=== PATIENT | female | born 1980 | race Caucasian/White ===

== ENCOUNTER 2017-05-27 19:43 | Emergency (ER) | payer MEDICAID ==
[~2017-05-27] VITALS: Ht 157.5 cm; Wt 73.6 kg
[2017-05-27 19:48] VITALS: BP 116/82
--- NOTE | 2017-05-27 20:20 | NUR ---
PATIENT IS A 36 Y/O FEMALE WHO PRESENTS TO THE ED C/O VAGINAL BLEEDING. PT STATES, "I HAVE VAGINAL BLEEDING SINCE MARCH." PT REPORTS 9/10 ACHING VAGINAL PAIN THAT DOES NOT RADIATE. PT DENIES CP, SOB, N/V/D. PT AAOX4, RR EVEN/UNLABORED. PT REPOSITIONED FOR COMFORT, BED IN LOWEST POSITION. ER MD DR. AREVALO NOTIFIED. WILL CONTINUE TO MONITOR.
[2017-05-27 20:21] LABS: BASOPHILS # (AUTO) 0.5 K/uL (0.00-0.22); EOSINOPHILS # (AUTO) 0.3 K/uL (0-0.4); HEMATOCRIT 39.5 % (36-48); HEMOGLOBIN 12.8 g/dL (12.0-16.0); MEAN CORPUSCULAR HEMOGLOBIN 28 pg (27-31); MEAN CORPUSCULAR HGB CONC 33 g/dL (33-37); MEAN CORPUSCULAR VOLUME 87 fL (80-94); MONOCYTES # (AUTO) 0.4 K/uL (0.8-1.0); NEUTROPHILS # (AUTO) 3.6 K/uL (1.8-7.7); PLATELET COUNT (AUTO) 317 K/uL (140-450); RED BLOOD CELL COUNT(AUTO) 4.53 MIL/uL (4.20-5.40); RED CELL DISTRIBUTION WIDTH 13.2 % (11.6-13.7); WHITE BLOOD COUNT (AUTO) 7.8 K/uL (4.8-10.8)
[2017-05-27 21:04] LABS: ANION GAP 11.3 (8-16); CARBON DIOXIDE 28.5 mmol/L (21-32); POTASSIUM 3.8 mmol/L (3.5-5.1)
[2017-05-27 21:05] LABS: ALBUMIN 3.5 g/dL (3.4-5.0); CREATININE 0.9 mg/dL (0.6-1.3); TOTAL BILIRUBIN 0.2 mg/dL (0.0-1.0)
[2017-05-27 21:30] LABS: BILIRUBIN,URINE NEGATIVE (NEGATIVE); BLOOD, URINE 3+ (NEGATIVE); COLOR,URINE YELLOW (YELLOW); LEUKOCYTE ESTERASE ,URINE NEGATIVE (NEGATIVE); NITRITE, URINE NEGATIVE (NEGATIVE); PH,URINE 5.5 (5.0-9.0); UGLUCOSE NEGATIVE (NEGATIVE)
[2017-05-27 21:32] VITALS: BP 119/77
--- NOTE | 2017-05-27 21:32 | NUR ---
Patient discharged with v/s stable. Written and verbal after care instructions given and explained. Patient alert, oriented and verbalized understanding of instructions. Ambulatory with steady gait. All questions addressed prior to discharge. ID band removed. Patient advised to follow up with PMD. Rx of PERCOCET AND NAPROXEN given. Patient educated on indication of medication including possible reaction and side effects. Opportunity to ask questions provided and answered.
[2017-05-27 21:36] LABS: APPEARANCE,URINE BLOODY (CLEAR)
[2017-05-27 21:40] LABS: RBC,URINE TOO NUMEROUS TO COUN /HPF (0-5); WBC,URINE NONE SEEN /HPF (0-5)
== END 2017-05-27 21:32 | disposition home or self-care (01) ==
LOC: MED 19:43
DX: N93.8 Other specified abnormal uterine and vaginal bleeding (principal); Z85.42 Personal history of malignant neoplasm of other parts of uterus
CPT/HCPCS: 36415; 80053; 81001; 84702; 85025; 99284

== ENCOUNTER 2020-01-31 15:44 | Emergency (ER) | payer SELFPAY ==
[~2020-01-31] VITALS: Ht 152.4 cm; Wt 77.1 kg
[2020-01-31 15:49] VITALS: BP 128/75
[2020-01-31 15:52] VITALS: BP 118/71
[2020-01-31] MEDS ORDERED: KETOROLAC 60 MG/2 ML VIAL IM ONE (16:05)
[2020-01-31] MEDS ORDERED: cephALEXin 500 MG CAP PO ONE (16:05)
[2020-01-31] MEDS ORDERED: BACITRACIN OINT 500 UNITS/GM PKT TP ONE ×2 (16:05→16:10)
[2020-01-31] MEDS ORDERED: SULFAMETH/TRIMETH DS 800/160MG 1 TAB PO ONE (16:05)
== END 2020-01-31 16:20 | disposition home or self-care (01) ==
LOC: MED 15:44
DX: L03.90 Cellulitis, unspecified (principal)
CPT/HCPCS: 96372; 99283; J1885